=== PATIENT | female | born 1975 | race Caucasian/White ===

== ENCOUNTER 2025-01-13 17:21 | Emergency (ER) | payer BC, SELFPAY ==
[2025-01-13 17:34] VITALS: BP 154/73; PULSE 75; RESP 18; TEMP 36.6; O2SAT 99
--- NOTE | 2025-01-13 18:04 | ED_ITS ---
HPI - Eye Problem General Chief complaint: Eye Problems Stated complaint: eye infection Time Seen by Provider: 01/13/25 17:58 Source: patient and RN notes reviewed Mode of arrival: ambulatory Limitations: no limitations History of Present Illness HPI Narrative: Patient presents today complaining of redness, swelling, and drainage from the left eye x3 days as well as intermittent blurred vision due to drainage. She has tried no [id number] treatment prior to arrival. Denies much pain, but reports irritation. Related Data Allergies Allergy/AdvReac Type Severity Reaction Status Date / Time No Known Allergies Allergy Verified 01/13/25 17:37 Review of Systems Review of Systems: CONSTITUTIONAL: Denies body aches, fever, chills, or sweats. EYES: Left eye swelling, drainage, irritation. ENT: Denies rhinorrhea, congestion, sore throat, or otalgia. CARDIOVASCULAR: Denies chest pain, palpitations, or edema. RESPIRATORY: Denies cough or dyspnea. GASTROINTESTINAL: Denies abdominal pain, nausea, vomiting, or diarrhea. GENITOURINARY: Denies dysuria or hematuria. SKIN: Denies rash, itching, or wounds. MUSCULOSKELETAL: Denies back pain, joint pain, or myalgia. NEUROLOGIC: Denies headache, numbness, tingling, or weakness. PSYCH: Denies depression or anxiety. PMFSH Comments At time of signature, I have reviewed and agree with nursing past medical, surgical, social and family history unless otherwise noted. Please see nursing chart for further information. There is no relevant family history pertinent to the presenting complaint Exam Narrative: GENERAL: Well-appearing, well-nourished, and in no acute distress. HEAD: Normocephalic, atraumatic. EYES: EOMI. PERRL. Right eye normal. Left eye: Large erythematous nodule to the left lower eyelid, inner aspect. Yellow crusting of the eyelashes and lower eyelid. Mildly injected conjunctiva. ENT: Mucous membranes pink and moist. NECK: Normal AROM. CHEST: No respiratory distress. EXTREMITIES: Normal range of motion. No edema. SKIN: Warm, dry, no rash. Capillary refill normal. Normal skin turgor. NEURO: No focal deficits. Alert and oriented x3. Gait steady. PSYCH: Normal affect. No signs of depression or anxiety. Course Course Level of Care: Express Care Visit Vital Signs Vital signs: Vital Signs Temperature 97.8 F 01/13/25 17:34 Pulse Rate 75 01/13/25 17:34 Respiratory Rate 18 01/13/25 17:34 Blood Pressure 154/73 H 01/13/25 17:34 Pulse Oximetry 99 01/13/25 17:34 Oxygen Delivery Room Air 01/13/25 17:34 Temperature 97.8 F 01/13/25 17:34 Pulse Rate 75 01/13/25 17:34 Respiratory Rate 18 01/13/25 17:34 Blood Pressure 154/73 H 01/13/25 17:34 Pulse Oximetry 99 01/13/25 17:34 Oxygen Delivery Room Air 01/13/25 17:34 Reviewed MDM - Eye Problem MDM Narrative Medical decision making narrative: Patient will be treated with Polytrim and recommend warm compresses for stye. No obvious cellulitis noted. Anticipatory guidance given. ED precautions given. Differential Diagnosis Differential diagnosis: Likely corneal abrasion, conjunctivitis, periorbital cellulitis and other (Stye) Critical Care Time Critical Care Time Critical Care Time: No Discharge Plan Discharge Clinical Impression: Stye Qualifiers: Laterality: left Eyelid: lower Qualified Code(s): H00.015 - Hordeolum externum left lower eyelid Patient Disposition: Home Condition: Stable Instructions: Stye (ED) Additional Instructions: Please use warm compresses to help facilitate drainage. Use the eyedrops as directed. Follow-up with an eye doctor in 3-4 days if symptoms are not improving. Go to the ER immediately if swelling and redness worsens. Your blood pressure was elevated above 120/80 today at Urgent Care. This puts you above the threshold for follow up. Please schedule a followup visit with your personal physician as soon as possible, for further evaluation and treatment. Even blood pressure exceeding 120/80 may indicate pre-hypertension. Patient Language: Surinamese Prescriptions: New polymyxin B sulf-trimethoprim 10,000 unit- 1 mg/mL drops 1 drp LEFT EYE QID 7 Days Qty: 10 0RF Follow-up/Referrals: PHYSICIAN,HANDMADE TILE ARTIST [Primary Care Provider] - Time of Disposition: 18:08
== END 2025-01-13 18:12 | disposition home or self-care (01) ==
PROVIDERS: Emergency Provider Nurse Practitioner; Referring Provider Emergency Medicine
DX: H00.015 Hordeolum externum left lower eyelid (principal)
CPT/HCPCS: 99203; G0463